=== PATIENT | female | born 1955 | race Caucasian/White ===

== ENCOUNTER 2017-03-13 11:47 | Observation (INO) | payer OTHER, MEDICAID ==
[2017-03-13] MEDS ORDERED: PEPCID 20 MG IV PREMIX* 20 MG/50 ML BAG IV PRN (12:49)
--- NOTE | 2017-03-13 12:54 | DR.H&P ---
H&P - History & Physical for Day of: H&P Date: 03/13/17 - Chief Complaint Chief Complaint: Weakness, nausea and gagging, diarrhea, abdominal pain - Allergies Allergies/Adverse Reactions: Allergies Allergy/AdvReac Type Severity Reaction Status Date / Time Ceftriaxone Allergy Verified 05/07/16 16:52 [From Rocephin] STEROIDS Allergy Uncoded 05/07/16 16:54 - History of Present Illness History of Present Illness: The patient is a 61-year-old white female who presents to the clinic with continued nausea and diarrhea with increasing weakness. Patient continues to complain of having abdominal pain. States she is nauseated and gagging. Patient unable to vomit secondary to surgery. The patient does state the diarrhea has improved. Patient has been taking Zofran, Phenergan, Imodium, Lomotil. Patient does complain off continued bloating and gas. Does complain of no energy. Patient was seen in the clinic earlier this week. - Past Medical History Past Medical History: Anxiety, Hypertension, Hyperthyroidism, Hypothyroidism Additional Medical History: Tachycardia, Fibromyalgia, History of Extensive Gomes - Past Surgical History Surgical History: Cholecystectomy, Ortho Surgery, Tonsillectomy Additional Surgical History: Skin Grafts - Family History Family Medical History: [place] - Social History Does patient currently use any type of tobacco product: No Have you used tobacco products in the last 12 months: No Type of Tobacco Use: None Does any household member use tobacco: No Alcohol Use: None Drug Use: None - Review of Systems Constitutional: Weakness, Malaise Eyes: No Symptoms Reported ENT: No Symptoms Reported Respiratory: Cough Cardiovascular: No Symptoms Reported Gastrointestinal: See HPI, Nausea, Abdominal Pain, Diarrhea, Other (dry heaving) Genitourinary: No Symptoms Reported Musculoskeletal: No Symptoms Reported Skin: No Symptoms Reported Neurological: No Symptoms Reported - Physical Exam Vital Signs: Blood Pressure [Right Arm] 127/70 Blood Pressure [Left Arm] 124/63 Blood Pressure 124/63 Oriented: Normal Eyes: Normal Ear: Normal Nose: Normal Throat: Normal Respiratory: Diminished Throughout Cardiovascular: Normal : Normal Auscultation: Bowel Sounds: Increased Palpation: Normal Tenderness: Diffuse Skin: Decreased Turgur, Other (Scars secondary to gomes to BUE) Musculoskeletal: Back:Lumbar, Deformity (Left 5th digit) Psychiatric: Normal Mood Description: Calm Affect: Quiet Speech Pattern: Clear - Assessment/Plan (1) Dehydration Status: Acute Plan: IV Hydration, CBC, CMP. (2) Acute gastroenteritis Status: Acute Plan: CBC, CMP, IV Hydration.
[2017-03-13 13:29] LABS: BASOPHILS # (AUTO) 0.1 X10^3/uL (0.0-0.1); BASOPHILS % (AUTO) 0.7 % (0.2-1.0); EOSINOPHILS # (AUTO) 0.1 x10^3/uL (0.0-0.2); EOSINOPHILS % (AUTO) 1.9 % (0.9-2.9); HEMATOCRIT 34.7 % (36.0-47.0); LYMPHOCYTES # (AUTO) 1.4 X10^3/uL (1.3-2.9); LYMPHOCYTES % (AUTO) 18.1 % (21.0-51.0); MEAN CORPUSCULAR HEMOGLOBIN 33.9 pg (27.0-34.0); MEAN CORPUSCULAR HGB CONC 34.5 g/dL (33.0-35.0); MEAN CORPUSCULAR VOLUME 98.3 fL (80.0-100.0); MONOCYTES # (AUTO) 0.6 x10^3/uL (0.3-0.8); NEUTROPHILS # (AUTO) 5.7 x10^3/uL (2.2-4.8); NEUTROPHILS % (AUTO) 71.3 % (42.0-75.0); PLATELET COUNT 205 X10^3/uL (150.0-450.0); RED BLOOD COUNT 3.53 X10^6/uL (3.5-5.4); RED CELL DISTRIBUTION WIDTH 14.9 % (11.6-16.5); WHITE BLOOD COUNT 7.9 X10^3/uL (3.6-10.0)
[2017-03-13 13:40] LABS: ALBUMIN 3.2 g/dL (3.4-5.0); CALCIUM 9.1 mg/dL (8.5-10.1); CARBON DIOXIDE 26.3 mmol/L (21-32); COR CA(FOR HYPOALB) 9.7 mg/dL (8.5-10.1); CREATININE 1.6 mg/dL (0.55-1.02); TOTAL PROTEIN 7.1 g/dL (6.4-8.2)
[2017-03-13] MEDS: NS 1000 ML 1,000 ML IV SCH (16:31)
[2017-03-13] MEDS: MORPHINE SULFATE INJ 2 MG INJ IVP PRN ×2 (16:31→21:02)
[2017-03-13 16:44] VITALS: BMI 37.9
[2017-03-14] MEDS: MORPHINE SULFATE INJ 2 MG INJ IVP PRN ×4 (02:01→21:44)
[2017-03-14] MEDS: NS 1000 ML 1,000 ML IV SCH ×3 (02:10→21:43)
[2017-03-14] MEDS: PHENERGAN INJ 25 MG IVP PRN ×4 (02:10→21:44)
[2017-03-14 04:50] LABS: BILIRUBIN,URINE NEGATIVE (NEGATIVE); BLOOD/HEMOGLOBIN,URINE NEGATIVE (NEGATIVE); GLUCOSE, URINE NEGATIVE (NEGATIVE); KETONES,URINE NEGATIVE (NEGATIVE); LEUKOCYTE ESTERASE ,URINE 1+ (NEGATIVE); NITRITES,URINE NEGATIVE (NEGATIVE); PROTEIN,URINE NEGATIVE (NEGATIVE); UROBILINOGEN,URINE NORMAL (NORMAL)
[2017-03-14 04:58] LABS: APPEARANCE,URINE CLEAR (CLEAR); BACTERIA,URINE NEGATIVE /HPF (NEGATIVE); COLOR,URINE YELLOW (YELLOW); RBC,URINE 0-3 /HPF (NEGATIVE); SQUAMOUS EPITHELIAL CELL,UR RARE /HPF (NEGATIVE)
[2017-03-14 06:00] LABS: BASOPHILS % (AUTO) 0.6 % (0.2-1.0); EOSINOPHILS # (AUTO) 0.1 x10^3/uL (0.0-0.2); EOSINOPHILS % (AUTO) 1.8 % (0.9-2.9); HEMATOCRIT 34.5 % (36.0-47.0); HEMOGLOBIN 11.9 g/dL (12.0-16.0); LYMPHOCYTES # (AUTO) 1.9 X10^3/uL (1.3-2.9); LYMPHOCYTES % (AUTO) 25.4 % (21.0-51.0); MEAN CORPUSCULAR HEMOGLOBIN 34.1 pg (27.0-34.0); MEAN CORPUSCULAR HGB CONC 34.3 g/dL (33.0-35.0); MEAN CORPUSCULAR VOLUME 99.2 fL (80.0-100.0); MEAN PLATELET VOLUME 8.7 fL (7.4-11.0); MONOCYTES # (AUTO) 0.7 x10^3/uL (0.3-0.8); NEUTROPHILS # (AUTO) 4.5 x10^3/uL (2.2-4.8); NEUTROPHILS % (AUTO) 62.2 % (42.0-75.0); PLATELET COUNT 217 X10^3/uL (150.0-450.0); RED BLOOD COUNT 3.48 X10^6/uL (3.5-5.4); RED CELL DISTRIBUTION WIDTH 14.6 % (11.6-16.5); WHITE BLOOD COUNT 7.3 X10^3/uL (3.6-10.0)
[2017-03-14 06:14] LABS: ALANINE AMINOTRANSFERASE 82 Units/L (12-78); ALKALINE PHOSPHATASE 296 Units/L (46-116); ASPARTATE AMINO TRANSFERASE 72 Units/L (15-37); BLOOD UREA NITROGEN 11 mg/dL (7-18); CALCIUM 8.8 mg/dL (8.5-10.1); CARBON DIOXIDE 30.1 mmol/L (21-32); CHLORIDE 102 mmol/L (98-107); COR CA(FOR HYPOALB) 9.6 mg/dL (8.5-10.1); SODIUM 139 mmol/L (136-145); eGFR BLACK RACES 42 (>60); eGFR NON BLACK RACES 35 (>60)
[2017-03-14] MEDS ORDERED: MAGNESIUM SULFATE 1 GM/100 mL PREMIX 1 GM/100 ML BAG IV PRN (06:57)
[2017-03-14] MEDS ORDERED: K-RIDER 10 MEQ/NS 100 ML 10 MEQ/100 ML BAG IV PRN (06:57)
[2017-03-14] MEDS ORDERED: MAG-OX TAB PO PRN (06:57)
[2017-03-14] MEDS: K-LYTE EFFERVESCENT PO PRN (08:29)
[2017-03-15] MEDS: PHENERGAN INJ 25 MG IVP PRN ×4 (03:06→20:21)
[2017-03-15] MEDS: MORPHINE SULFATE INJ 2 MG INJ IVP PRN ×4 (03:06→20:21)
[2017-03-15] MEDS: NS 1000 ML 1,000 ML IV SCH ×2 (06:20→15:59)
[2017-03-15 06:25] LABS: BASOPHILS % (AUTO) 0.6 % (0.2-1.0); EOSINOPHILS # (AUTO) 0.2 x10^3/uL (0.0-0.2); EOSINOPHILS % (AUTO) 2.8 % (0.9-2.9); HEMATOCRIT 31.9 % (36.0-47.0); HEMOGLOBIN 10.8 g/dL (12.0-16.0); LYMPHOCYTES # (AUTO) 1.5 X10^3/uL (1.3-2.9); LYMPHOCYTES % (AUTO) 23.2 % (21.0-51.0); MEAN CORPUSCULAR HEMOGLOBIN 33.8 pg (27.0-34.0); MEAN CORPUSCULAR HGB CONC 33.9 g/dL (33.0-35.0); MEAN CORPUSCULAR VOLUME 99.7 fL (80.0-100.0); MEAN PLATELET VOLUME 7.8 fL (7.4-11.0); MONOCYTES # (AUTO) 0.7 x10^3/uL (0.3-0.8); MONOCYTES % (AUTO) 11.1 % (0.0-13.0); NEUTROPHILS % (AUTO) 62.3 % (42.0-75.0); PLATELET COUNT 203 X10^3/uL (150.0-450.0); RED BLOOD COUNT 3.19 X10^6/uL (3.5-5.4); RED CELL DISTRIBUTION WIDTH 14.8 % (11.6-16.5); WHITE BLOOD COUNT 6.5 X10^3/uL (3.6-10.0)
[2017-03-15 06:50] LABS: ALBUMIN 2.9 g/dL (3.4-5.0); CALCIUM 8.7 mg/dL (8.5-10.1); CARBON DIOXIDE 31.5 mmol/L (21-32); COR CA(FOR HYPOALB) 9.6 mg/dL (8.5-10.1); CREATININE 1.52 mg/dL (0.55-1.02); TOTAL PROTEIN 6.6 g/dL (6.4-8.2)
--- NOTE | 2017-03-15 18:52 | PCM.PROG ---
Progress Note - Progress Note for Day of Date: 03/14/17 - Subjective Subjective: WAS ADMITTED FOR DEHYDRATION. TODAY, SHE IS ALERT AND ORIENTED, LYING IN BED ON MORNING ROUNDS. SHE IS NOTED WITH COMPLAINTS OF WEAKNESS. SHE IS ALSO COMPLAINING OF LOOSE BOWEL MOVEMENTS AND NAUSEA. ON EXAMINATION, LUNGS ARE NOTED CTA. ABDOMEN IS SOFT, ROUND, AND NON-TENDER WITH HYPERACTIVE BOWEL SOUNDS NOTED IN ALL QUADRANTS. HER VITAL SIGNS THIS MORNING ARE 98.7-85-20-92%-128/78. LABS WERE OBTAINED. ABNORMAL LAB VALUES INCLUDE THE FOLLOWING: RBC 3.48, HGB 11.9, HCT 34.5, POTASSIUM 3.0, CREATININE 1.60, GFR 35 , GLUCOSE 107, AST 72, ALT 82, ALK PHOS 296, ALBUMIN 3.0. TODAY, WE PLAN TO REPLACE POTASSIUM, CONTINUE TO HYDRATE, AND ORDER AN ACUTE HEPATITIS PANEL D/T ELEVATED AST/ALT. OTHERWISE, WE WILL CONTINUE WITH CURRENT PLAN OF CARE AND CONTINUE TO MONITOR PATIENT. - Past Medical Family Social History Past Med/Fam/Surg Hx: No changes since H&P Allergies: Allergies ceftriaxone [From Rocephin] Allergy (Verified 03/14/17 02:43) steroid Allergy (Uncoded 03/14/17 02:43) - Review of Systems ROS: No change since H&P - Vital Signs and I&O's Vital Signs: Temperature 98.5 F Pulse Rate [Right Brachial] 90 Respiratory Rate 20 Blood Pressure [Right Arm] 150/82 Blood Pressure [Left Arm] 136/77 Blood Pressure 124/63 O2 Sat by Pulse Oximetry 97 Intake and Output: Intake & Output 03/13/17 03/14/17 03/15/17 03/16/17 11:59 11:59 11:59 11:59 Intake Total 2120 2200 1810 Output Total 3600 2500 1800 Balance -1480 -300 10 - Physical Exam Oriented: Normal Eyes: Normal Ear: Normal Nose: Normal Throat: Normal Respiratory: Normal Cardiovascular: Normal : Normal Auscultation: Bowel Sounds: Increased Palpation: Normal Tenderness: Diffuse Skin: Decreased Turgur, Other (Scars secondary to gomes to BUE) Musculoskeletal: Back:Lumbar, Deformity (Left 5th digit) Psychiatric: Normal Mood Description: Calm Affect: Quiet Speech Pattern: Clear - Laboratory and Diagnostics Result Diagrams: 03/15/17 06:12 03/15/17 06:12 Labs: Laboratory WBC 6.5 X10^3/uL (3.6-10.0) 03/15/17 06:12 RBC 3.19 X10^6/uL (3.5-5.4) L 03/15/17 06:12 Hgb 10.8 g/dL (12.0-16.0) L 03/15/17 06:12 Hct 31.9 % (36.0-47.0) L 03/15/17 06:12 MCV 99.7 fL (80.0-100.0) 03/15/17 06:12 MCH 33.8 pg (27.0-34.0) 03/15/17 06:12 MCHC 33.9 g/dL (33.0-35.0) 03/15/17 06:12 RDW 14.8 % (11.6-16.5) 03/15/17 06:12 Plt Count 203 X10^3/uL (150.0-450.0) 03/15/17 06:12 MPV 7.8 fL (7.4-11.0) 03/15/17 06:12 Neut % 62.3 % (42.0-75.0) 03/15/17 06:12 Lymph % 23.2 % (21.0-51.0) 03/15/17 06:12 [place] % 11.1 % (0.0-13.0) 03/15/17 06:12 Eos % 2.8 % (0.9-2.9) 03/15/17 06:12 Baso % 0.6 % (0.2-1.0) 03/15/17 06:12 Neut # 4.0 x10^3/uL (2.2-4.8) 03/15/17 06:12 Lymph # 1.5 X10^3/uL (1.3-2.9) 03/15/17 06:12 [place] # 0.7 x10^3/uL (0.3-0.8) 03/15/17 06:12 Eos # 0.2 x10^3/uL (0.0-0.2) 03/15/17 06:12 Baso # 0.0 X10^3/uL (0.0-0.1) 03/15/17 06:12 Absolute Nucleated RBC 0.0 /100WBC 03/15/17 06:12 Sodium 141 mmol/L (136-145) 03/15/17 06:12 Corrected Sodium 141 mmol/L (136-145) 03/15/17 06:12 Potassium 3.5 mmol/L (3.5-5.1) 03/15/17 06:12 Chloride 105 mmol/L (98-107) 03/15/17 06:12 Carbon Dioxide 31.5 mmol/L (21-32) 03/15/17 06:12 BUN 7 mg/dL (7-18) 03/15/17 06:12 Creatinine 1.52 mg/dL (0.55-1.02) H 03/15/17 06:12 Est GFR (MDRD) Af Amer 44 (>60) L 03/15/17 06:12 Est GFR (MDRD) Non-Af 37 (>60) L 03/15/17 06:12 Glucose 115 mg/dL (65-99) H 03/15/17 06:12 Calcium 8.7 mg/dL (8.5-10.1) 03/15/17 06:12 Corrected Calcium 9.6 mg/dL (8.5-10.1) 03/15/17 06:12 Magnesium 1.8 mg/dL (1.7-2.9) 03/14/17 07:16 Total Bilirubin 0.40 mg/dL (0.2-1.0) 03/15/17 06:12 AST 34 Units/L (15-37) 03/15/17 06:12 ALT 53 Units/L (12-78) 03/15/17 06:12 Alkaline Phosphatase 227 Units/L (46-116) H 03/15/17 06:12 Total Protein 6.6 g/dL (6.4-8.2) 03/15/17 06:12 Albumin 2.9 g/dL (3.4-5.0) L 03/15/17 06:12 Globulin 3.7 g/dL (2.5-4.5) 03/15/17 06:12 Albumin/Globulin Ratio 0.8 Ratio (1.1-2.1) L 03/15/17 06:12 Amylase 46 Units/L (25-115) 03/13/17 13:17 Lipase 222 Units/L (73-393) 03/13/17 13:17 Specimen Type Clean catch urine 03/14/17 04:40 Urine Color Yellow (YELLOW) 03/14/17 04:40 Urine Appearance Clear (CLEAR) 03/14/17 04:40 Urine pH 5.0 (5.0 - 8.0) 03/14/17 04:40 Ur Specific [place] 1.010 (1.000-1.030) 03/14/17 04:40 Urine Protein Negative (NEGATIVE) 03/14/17 04:40 Urine Glucose (UA) Negative (NEGATIVE) 03/14/17 04:40 Urine Ketones Negative (NEGATIVE) 03/14/17 04:40 Urine Occult Blood Negative (NEGATIVE) 03/14/17 04:40 Urine Nitrite Negative (NEGATIVE) 03/14/17 04:40 Urine Bilirubin Negative (NEGATIVE) 03/14/17 04:40 Urine Urobilinogen Normal (NORMAL) 03/14/17 04:40 Ur Leukocyte Esterase 1+ (NEGATIVE) 03/14/17 04:40 Urine RBC 0-3 /HPF (NEGATIVE) 03/14/17 04:40 Urine WBC 0-3 /HPF (NEGATIVE) 03/14/17 04:40 Ur Squamous Epith Cells Rare /HPF (NEGATIVE) 03/14/17 04:40 Urine Bacteria Negative /HPF (NEGATIVE) 03/14/17 04:40 Ur Culture Indicated? No/not indicated 03/14/17 04:40 Stool Description 25g formed brown 03/14/17 22:57 Stl Occult Blood (IFOB) Negative (NEGATIVE) 03/14/17 22:57 H. pylori IgG Antibody Negative (NEGATIVE) 03/15/17 06:12 - Plan (1) Acute gastroenteritis Status: Acute Plan: CBC, CMP, IV Hydration. (2) Dehydration Status: Acute Plan: IV Hydration, CBC, CMP.
--- NOTE | 2017-03-15 19:54 | PCM.PROG ---
Progress Note - Progress Note for Day of Date: 03/15/17 - Subjective Subjective: WAS ADMITTED FOR DEHYDRATION. TODAY, SHE IS ALERT AND ORIENTED, LYING IN BED ON MORNING ROUNDS. SHE CONTINUES WITH WEAKNESS AND LOOSE BOWEL MOVEMENTS. ON EXAMINATION, LUNGS ARE NOTED CTA. ABDOMEN IS SOFT, ROUND, AND NON-TENDER WITH HYPERACTIVE BOWEL SOUNDS NOTED IN ALL QUADRANTS. HER VITAL SIGNS THIS MORNING ARE 98.6-75-20-99%-168/83. LABS WERE OBTAINED. ABNORMAL LAB VALUES INCLUDE THE FOLLOWING: RBC 3.19, HGB 10.8, HCT 31.9, POTASSIUM 3.5, CREATININE 1.52, GFR 35, GLUCOSE 115, AST 34, ALT 53, ALK PHOS 227, ALBUMIN 2.9. TODAY, WE WILL CONTINUE WITH CURRENT PLAN OF CARE AND CONTINUE TO HYDRATE PATIENT. WE WILL FOLLOW UP WITH AM LABS AND TURN CARE BACK OVER TO IN THE AM. - Past Medical Family Social History Past Med/Fam/Surg Hx: No changes since H&P Allergies: Allergies ceftriaxone [From Rocephin] Allergy (Verified 03/14/17 02:43) steroid Allergy (Uncoded 03/14/17 02:43) - Review of Systems ROS: No change since H&P - Vital Signs and I&O's Vital Signs: Temperature 98.5 F Pulse Rate [Right Brachial] 90 Respiratory Rate 20 Blood Pressure [Right Arm] 150/82 Blood Pressure [Left Arm] 136/77 Blood Pressure 124/63 O2 Sat by Pulse Oximetry 97 Intake and Output: Intake & Output 03/13/17 03/14/17 03/15/17 03/16/17 11:59 11:59 11:59 11:59 Intake Total 2120 2200 1810 Output Total 3600 2500 1800 Balance -1480 -300 10 - Physical Exam Oriented: Normal Eyes: Normal Ear: Normal Nose: Normal Throat: Normal Respiratory: Normal Cardiovascular: Normal : Normal Auscultation: Bowel Sounds: Increased Palpation: Normal Tenderness: Diffuse Skin: Decreased Turgur, Other (Scars secondary to gomes to BUE) Musculoskeletal: Back:Lumbar, Deformity (Left 5th digit) Psychiatric: Normal Mood Description: Calm Affect: Quiet Speech Pattern: Clear - Laboratory and Diagnostics Result Diagrams: 03/15/17 06:12 03/15/17 06:12 Labs: Laboratory WBC 6.5 X10^3/uL (3.6-10.0) 03/15/17 06:12 RBC 3.19 X10^6/uL (3.5-5.4) L 03/15/17 06:12 Hgb 10.8 g/dL (12.0-16.0) L 03/15/17 06:12 Hct 31.9 % (36.0-47.0) L 03/15/17 06:12 MCV 99.7 fL (80.0-100.0) 03/15/17 06:12 MCH 33.8 pg (27.0-34.0) 03/15/17 06:12 MCHC 33.9 g/dL (33.0-35.0) 03/15/17 06:12 RDW 14.8 % (11.6-16.5) 03/15/17 06:12 Plt Count 203 X10^3/uL (150.0-450.0) 03/15/17 06:12 MPV 7.8 fL (7.4-11.0) 03/15/17 06:12 Neut % 62.3 % (42.0-75.0) 03/15/17 06:12 Lymph % 23.2 % (21.0-51.0) 03/15/17 06:12 [place] % 11.1 % (0.0-13.0) 03/15/17 06:12 Eos % 2.8 % (0.9-2.9) 03/15/17 06:12 Baso % 0.6 % (0.2-1.0) 03/15/17 06:12 Neut # 4.0 x10^3/uL (2.2-4.8) 03/15/17 06:12 Lymph # 1.5 X10^3/uL (1.3-2.9) 03/15/17 06:12 [place] # 0.7 x10^3/uL (0.3-0.8) 03/15/17 06:12 Eos # 0.2 x10^3/uL (0.0-0.2) 03/15/17 06:12 Baso # 0.0 X10^3/uL (0.0-0.1) 03/15/17 06:12 Absolute Nucleated RBC 0.0 /100WBC 03/15/17 06:12 Sodium 141 mmol/L (136-145) 03/15/17 06:12 Corrected Sodium 141 mmol/L (136-145) 03/15/17 06:12 Potassium 3.5 mmol/L (3.5-5.1) 03/15/17 06:12 Chloride 105 mmol/L (98-107) 03/15/17 06:12 Carbon Dioxide 31.5 mmol/L (21-32) 03/15/17 06:12 BUN 7 mg/dL (7-18) 03/15/17 06:12 Creatinine 1.52 mg/dL (0.55-1.02) H 03/15/17 06:12 Est GFR (MDRD) Af Amer 44 (>60) L 03/15/17 06:12 Est GFR (MDRD) Non-Af 37 (>60) L 03/15/17 06:12 Glucose 115 mg/dL (65-99) H 03/15/17 06:12 Calcium 8.7 mg/dL (8.5-10.1) 03/15/17 06:12 Corrected Calcium 9.6 mg/dL (8.5-10.1) 03/15/17 06:12 Magnesium 1.8 mg/dL (1.7-2.9) 03/14/17 07:16 Total Bilirubin 0.40 mg/dL (0.2-1.0) 03/15/17 06:12 AST 34 Units/L (15-37) 03/15/17 06:12 ALT 53 Units/L (12-78) 03/15/17 06:12 Alkaline Phosphatase 227 Units/L (46-116) H 03/15/17 06:12 Total Protein 6.6 g/dL (6.4-8.2) 03/15/17 06:12 Albumin 2.9 g/dL (3.4-5.0) L 03/15/17 06:12 Globulin 3.7 g/dL (2.5-4.5) 03/15/17 06:12 Albumin/Globulin Ratio 0.8 Ratio (1.1-2.1) L 03/15/17 06:12 Amylase 46 Units/L (25-115) 03/13/17 13:17 Lipase 222 Units/L (73-393) 03/13/17 13:17 Specimen Type Clean catch urine 03/14/17 04:40 Urine Color Yellow (YELLOW) 03/14/17 04:40 Urine Appearance Clear (CLEAR) 03/14/17 04:40 Urine pH 5.0 (5.0 - 8.0) 03/14/17 04:40 Ur Specific [place] 1.010 (1.000-1.030) 03/14/17 04:40 Urine Protein Negative (NEGATIVE) 03/14/17 04:40 Urine Glucose (UA) Negative (NEGATIVE) 03/14/17 04:40 Urine Ketones Negative (NEGATIVE) 03/14/17 04:40 Urine Occult Blood Negative (NEGATIVE) 03/14/17 04:40 Urine Nitrite Negative (NEGATIVE) 03/14/17 04:40 Urine Bilirubin Negative (NEGATIVE) 03/14/17 04:40 Urine Urobilinogen Normal (NORMAL) 03/14/17 04:40 Ur Leukocyte Esterase 1+ (NEGATIVE) 03/14/17 04:40 Urine RBC 0-3 /HPF (NEGATIVE) 03/14/17 04:40 Urine WBC 0-3 /HPF (NEGATIVE) 03/14/17 04:40 Ur Squamous Epith Cells Rare /HPF (NEGATIVE) 03/14/17 04:40 Urine Bacteria Negative /HPF (NEGATIVE) 03/14/17 04:40 Ur Culture Indicated? No/not indicated 03/14/17 04:40 Stool Description 25g formed brown 03/14/17 22:57 Stl Occult Blood (IFOB) Negative (NEGATIVE) 03/14/17 22:57 H. pylori IgG Antibody Negative (NEGATIVE) 03/15/17 06:12 - Plan (1) Acute gastroenteritis Status: Acute Plan: CBC, CMP, IV Hydration. (2) Dehydration Status: Acute Plan: IV Hydration, CBC, CMP.
[2017-03-16] MEDS: MORPHINE SULFATE INJ 2 MG INJ IVP PRN ×5 (00:34→21:30)
[2017-03-16] MEDS: NS 1000 ML 1,000 ML IV SCH ×2 (01:50→14:33)
[2017-03-16] MEDS: PHENERGAN INJ 25 MG IVP PRN (06:11)
[2017-03-16 06:50] LABS: ALBUMIN 2.8 g/dL (3.4-5.0); CALCIUM 8.7 mg/dL (8.5-10.1); CARBON DIOXIDE 31.2 mmol/L (21-32); COR CA(FOR HYPOALB) 9.7 mg/dL (8.5-10.1); CREATININE 1.36 mg/dL (0.55-1.02); TOTAL PROTEIN 6.7 g/dL (6.4-8.2)
[2017-03-16 07:02] LABS: BASOPHILS % (AUTO) 0.4 % (0.2-1.0); EOSINOPHILS # (AUTO) 0.2 x10^3/uL (0.0-0.2); EOSINOPHILS % (AUTO) 2.9 % (0.9-2.9); LYMPHOCYTES # (AUTO) 1.7 X10^3/uL (1.3-2.9); LYMPHOCYTES % (AUTO) 26.3 % (21.0-51.0); MEAN CORPUSCULAR HEMOGLOBIN 33.8 pg (27.0-34.0); MEAN CORPUSCULAR HGB CONC 33.4 g/dL (33.0-35.0); MEAN CORPUSCULAR VOLUME 101.1 fL (80.0-100.0); MEAN PLATELET VOLUME 8.4 fL (7.4-11.0); MONOCYTES # (AUTO) 0.7 x10^3/uL (0.3-0.8); MONOCYTES % (AUTO) 11.3 % (0.0-13.0); NEUTROPHILS # (AUTO) 3.7 x10^3/uL (2.2-4.8); NEUTROPHILS % (AUTO) 59.1 % (42.0-75.0); PLATELET COUNT 206 X10^3/uL (150.0-450.0); RED BLOOD COUNT 3.27 X10^6/uL (3.5-5.4); WHITE BLOOD COUNT 6.3 X10^3/uL (3.6-10.0)
[2017-03-16] MEDS: K-LYTE EFFERVESCENT PO PRN ×2 (07:49→08:35)
[2017-03-16] MEDS: ZOFRAN INJ 4 MG VIAL IVP PRN (08:41)
[2017-03-16] MEDS: NEURONTIN CAP 300 MG PO SCH ×3 (11:04→21:30)
[2017-03-16] MEDS ORDERED: ANTIVERT TAB 25 MG PO PRN (13:01)
[2017-03-16] MEDS ORDERED: LOPERAMIDE HCL 2 MG PO PRN (13:01)
[2017-03-16] MEDS ORDERED: VISTARIL PO PRN (13:01)
[2017-03-16] MEDS ORDERED: ALPRAZOLAM PO PRN (13:01)
[2017-03-16] MEDS ORDERED: ONDANSETRON HCL PO PRN (13:01)
[2017-03-16] MEDS ORDERED: PHENERGAN TAB 25 MG PO PRN (13:01)
[2017-03-16] MEDS ORDERED: ZANAFLEX PO PRN (13:01)
[2017-03-16] MEDS ORDERED: MUCINEX D PO PRN (13:01)
[2017-03-16] MEDS ORDERED: XANAX PO PRN (13:08)
[2017-03-16] MEDS ORDERED: ZOFRAN TAB 4 MG PO PRN (13:12)
[2017-03-16] MEDS ORDERED: DILTIAZEM HCL 60 MG PO SCH (13:15)
[2017-03-16] MEDS ORDERED: SERTRALINE HCL PO SCH (13:15)
[2017-03-16] MEDS ORDERED: TAPAZOLE ONE ×2 (14:03→21:25)
[2017-03-16] MEDS: TENORMIN PO SCH (14:33)
[2017-03-16] MEDS: TAPAZOLE PO SCH ×2 (14:33→21:30)
[2017-03-16] MEDS: COZAAR PO SCH (14:33)
[2017-03-16] MEDS: ZyrTEC TAB 10 MG PO SCH (14:34)
[2017-03-16] MEDS: CYMBALTA PO SCH ×2 (14:34→21:30)
[2017-03-16] MEDS: NORCO 10/325 TAB PO PRN (14:34)
[2017-03-16] MEDS ORDERED: PREVNAR 13 IM ONE (15:17)
--- NOTE | 2017-03-16 16:18 | CT ---
STUDY: CT ABDOMEN WITHOUT IV AND ORAL CONTRAST HISTORY: COPD, asthma, hypertension dehydration. Comparison: None. Technique: Multiple axial images of the abdomen were obtained from the lung bases to the iliac crest s following the administration of IV contrast. Automated exposure control (AEC) was utilized to adju st the MA and/or kV. Findings: The visualized portions of the lung bases are unremarkable. CT abdomen: The gallbladder is surgically absent. A surgical clip is noted in the gallbladder fossa. The liver, spleen, pancreas, kidneys, and adrenal glands are normal in appearance. No significant mes enteric lymphadenopathy or inflammatory stranding is appreciated. The stomach is normal in appearance. The small bowel is normal in appearance, without evidence of bow el wall thickening or small bowel obstruction. The terminal ileum and cecum are within normal limits. The appendix is unremarkable. There is no evidence of right lower quadrant fat stranding. The ascend ing and transverse colon are within normal limits. The descending colon is unremarkable. IMPRESSION: 1. No evidence of acute abdominal abnormality. Reported By:
[2017-03-16] MEDS ORDERED: PANTOPRAZOLE SODIUM 20 MG PO SCH (21:00)
[2017-03-16] MEDS ORDERED: PATIENT'S HOME MEDICATION (Ropinirole Hcl [Requip] 1 TAB) PO SCH (21:00)
[2017-03-16] MEDS: REQUIP PO SCH (21:30)
[2017-03-17] MEDS: NS 1000 ML 1,000 ML IV SCH (02:22)
[2017-03-17] MEDS: ZOFRAN INJ 4 MG VIAL IVP PRN (02:26)
[2017-03-17] MEDS ORDERED: TAPAZOLE ONE (05:23)
[2017-03-17] MEDS: TAPAZOLE PO SCH (05:29)
[2017-03-17] MEDS: NEURONTIN CAP 300 MG PO SCH (05:29)
[2017-03-17 06:46] LABS: BASOPHILS % (AUTO) 0.6 % (0.2-1.0); EOSINOPHILS # (AUTO) 0.2 x10^3/uL (0.0-0.2); EOSINOPHILS % (AUTO) 2.1 % (0.9-2.9); HEMATOCRIT 32.9 % (36.0-47.0); HEMOGLOBIN 11.3 g/dL (12.0-16.0); LYMPHOCYTES # (AUTO) 1.6 X10^3/uL (1.3-2.9); LYMPHOCYTES % (AUTO) 21.4 % (21.0-51.0); MEAN CORPUSCULAR HEMOGLOBIN 33.9 pg (27.0-34.0); MEAN CORPUSCULAR HGB CONC 34.4 g/dL (33.0-35.0); MEAN CORPUSCULAR VOLUME 98.5 fL (80.0-100.0); MEAN PLATELET VOLUME 8.2 fL (7.4-11.0); NEUTROPHILS # (AUTO) 4.7 x10^3/uL (2.2-4.8); NEUTROPHILS % (AUTO) 62.9 % (42.0-75.0); PLATELET COUNT 246 X10^3/uL (150.0-450.0); RED BLOOD COUNT 3.34 X10^6/uL (3.5-5.4); RED CELL DISTRIBUTION WIDTH 14.8 % (11.6-16.5); WHITE BLOOD COUNT 7.4 X10^3/uL (3.6-10.0)
[2017-03-17 07:08] LABS: ALANINE AMINOTRANSFERASE 32 Units/L (12-78); ALBUMIN 3.1 g/dL (3.4-5.0); ALKALINE PHOSPHATASE 177 Units/L (46-116); ASPARTATE AMINO TRANSFERASE 22 Units/L (15-37); BLOOD UREA NITROGEN 9 mg/dL (7-18); CALCIUM 8.7 mg/dL (8.5-10.1); CARBON DIOXIDE 28.5 mmol/L (21-32); CHLORIDE 102 mmol/L (98-107); COR CA(FOR HYPOALB) 9.4 mg/dL (8.5-10.1); CREATININE 1.29 mg/dL (0.55-1.02); SODIUM 139 mmol/L (136-145); TOTAL PROTEIN 7.2 g/dL (6.4-8.2); eGFR BLACK RACES 54 (>60); eGFR NON BLACK RACES 44 (>60)
[2017-03-17 08:17] VITALS: BP 174/86
--- NOTE | 2017-03-17 08:17 | RAD ---
Chest, two views Indication: COPD Comparison: 06/30/2016 Findings: Heart size is normal. Left subclavian port catheter is well positioned without pneumothorax . No focal consolidation or pleural effusion is identified. No acute osseous abnormality seen. Impression: No acute chest process. Reported By:
[2017-03-17] MEDS ORDERED: CARDIZEM TAB 30 MG PLAIN PO SCH (09:00)
[2017-03-17] MEDS ORDERED: ZOLOFT PO SCH (09:00)
[2017-03-17] MEDS ORDERED: PROTONIX TAB 40 MG PO SCH (09:00)
[2017-03-17] MEDS ORDERED: IMODIUM CAP 2 MG PO SCH (09:00)
[2017-03-17] MEDS: REQUIP PO SCH (09:19)
[2017-03-17] MEDS: TENORMIN PO SCH (09:19)
[2017-03-17] MEDS: NORCO 10/325 TAB PO PRN (09:19)
[2017-03-17] MEDS: COZAAR PO SCH (09:19)
[2017-03-17] MEDS: ZyrTEC TAB 10 MG PO SCH (09:20)
[2017-03-17] MEDS: CYMBALTA PO SCH (09:25)
[2017-03-17 22:41] LABS: HEPATITIS A ANTIBODY IGM Negative (Negative)
[2017-03-18 06:43] LABS: HEPATITIS B CORE IGM Negative (Negative); HEPATITIS B SURFACE ANTIGEN Negative (Negative)
== END 2017-03-17 10:55 | disposition home or self-care (01) ==
LOC: MED/SURG 11:47
PROVIDERS: ADMIT Internal Medicine; ATTEND Internal Medicine
DX: E86.0 Dehydration (principal); K52.89 Other specified noninfective gastroenteritis and colitis; R53.1 Weakness; R19.7 Diarrhea, unspecified; R10.84 Generalized abdominal pain; R11.2 Nausea with vomiting, unspecified; F41.8 Other specified anxiety disorders; I10 Essential (primary) hypertension; E78.2 Mixed hyperlipidemia; E03.8 Other specified hypothyroidism; E87.6 Hypokalemia
CPT/HCPCS: 36415; 71020; 74170; 80053; 80074; 81001; 82150; 82270; 83690; 83735; 84132; 85025; 86677; A4222; S0028; 90670; G0378; J2270; J2405; J2550